=== PATIENT | male | born 2000 | race Caucasian/White ===

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

== ENCOUNTER 2024-05-04 19:56 | Emergency (ER) | payer SELFPAY ==
[2024-05-04 20:00] VITALS: BP 111/73; PULSE 90; RESP 18; TEMP 98.4; BMI 27.3
[2024-05-04] MEDS ORDERED: CLINDAMYCIN HCL 150 MG CAPSULE (FP) ONE (21:55)
[2024-05-04] MEDS ORDERED: ACETAMINOPHEN 500 MG TABLET (FP) ONE (21:56)
[2024-05-04] MEDS: ACETAMINOPHEN 500 MG TABLET (FP) PO ONE (21:58)
[2024-05-04] MEDS: CLINDAMYCIN HCL 300 MG CAPSULE PO ONE (21:58)
== END 2024-05-04 22:27 | disposition home or self-care (01) ==
LOC: JERFT 19:56
DX: L03.213 Periorbital cellulitis (principal); H00.021 Hordeolum internum right upper eyelid
CPT/HCPCS: 99283-25